=== PATIENT | female | born 1990 | race Two or more races ===

== ENCOUNTER 2018-05-15 11:05 | Observation (INO) | payer OTHER ==
[~2018-05-15] VITALS: Ht 165.1 cm; Wt 97.7 kg
--- NOTE | 2018-05-15 11:35 | NUR ---
PT PRESENTING TO ER FOR LLQ PAIN X1 WK WITH PAIN IN ABD DURING AND AFTER VOIDING SINCE YESTERDAY. CONNECTED TO MONITORING, VSS. NO V/D REPORTED. UA COLLECTED AND SENT TO LAB. CALL LIGHT WITHIN REACH. AWAITING US AND LAB AT THIS TIME.
[2018-05-15] MEDS ORDERED: MIRENA (11:36)
[2018-05-15 11:58] LABS: BASOPHILS # (AUTO) 0.03 x10^3/uL (0-0.1); BASOPHILS % (AUTO) 0 % (0-1); EOSINOPHILS # (AUTO) 0.16 x10^3/uL (0-0.4); EOSINOPHILS % (AUTO) 2 % (1-7); LYMPHOCYTES # (AUTO) 2.37 x10^3/uL (1-3.4); LYMPHOCYTES % (AUTO) 23 % (22-44); MD NO; MEAN CORPUSCULAR HEMOGLOBIN 27.7 pg (27.0-34.8); MEAN CORPUSCULAR HGB CONC 33.3 g/dL (32.4-35.8); MEAN CORPUSCULAR VOLUME 83.2 fL (80-100); MEAN PLATELET VOLUME 6.9 fL (7.4-10.4); MONOCYTES # (AUTO) 0.86 x10^3/uL (0.2-0.8); MONOCYTES % (AUTO) 8 % (2-9); NEUTROPHILS % (AUTO) 67 % (42-75); PLATELET COUNT 440 x10^3/uL (130-400); RED BLOOD COUNT 4.79 x10^6/uL (3.82-5.3); RED CELL DISTRIBUTION WIDTH 13.4 % (9.6-15.2)
[2018-05-15 12:06] LABS: ALBUMIN 3.5 g/dL (3.4-5.0); ANION GAP 3 mmol/L (5-15); CALCIUM 8.5 mg/dL (8.5-10.1); CHLORIDE 111 mmol/L (98-107)
--- NOTE | 2018-05-15 12:08 | NUR ---
PT TAKEN TO US
[2018-05-15 12:20] LABS: MICROSCOPIC INDICATED
[2018-05-15 12:24] LABS: CREATININE 0.63 mg/dL (0.55-1.02)
[2018-05-15 12:26] LABS: CULTURE INDICATED? NO
--- NOTE | 2018-05-15 13:01 | NUR ---
MD TO BEDSIDE TO UPDATE PT ON POC. HOUSE DESIGNER PAGED, AWAITING DISPO.
--- NOTE | 2018-05-15 13:08 | NUR ---
IV PLACED, PER MD REQUEST. VSS. AWAITING FURTHER ORDERS AT THIS TIME
[2018-05-15] MEDS ORDERED: MORPHINE SULFATE 4 MG/ML, 1ML ONE (13:23)
[2018-05-15] MEDS ORDERED: SODIUM CHLORIDE FLUSH 10ML SYR IVF ONE (13:30)
[2018-05-15] MEDS ORDERED: MORPHINE SULFATE 4 MG/ML, 1ML IVPush PRN ×2 (13:30→18:00)
--- NOTE | 2018-05-15 13:33 | NUR ---
PT MEDCIATED FOR PAIN PER MAR. AWAITING DR. PAVON AT THIS TIME. CALL LIGHT WITHIN REACH. VSS
--- NOTE | 2018-05-15 14:43 | NUR ---
REPORT GIVEN TO CHRISTOPHER SANTOS
[2018-05-15 15:55] VITALS: BP 122/72
--- NOTE | 2018-05-15 15:55 | NUR ---
DR PAVON AT BEDSIDE
--- NOTE | 2018-05-15 16:39 | NUR ---
PT AWARE OF POC. PT DENIES NEEDS OR PAIN ATT. PT ON CONT. SPO2 AND BP MONITOR, VSS.
[2018-05-15] MEDS ORDERED: FENTANYL PF 100 MCG/2ML ONE (17:42)
[2018-05-15] MEDS ORDERED: MIDAZOLAM 1 MG/ML, 2ML ONE (17:42)
[2018-05-15] MEDS ORDERED: BUPIVACAINE/PF 0.25% ONE (17:47)
[2018-05-15] MEDS ORDERED: MISOPROSTOL 200 MCG TABLET ONE (17:47)
[2018-05-15] MEDS ORDERED: EPINEPHRINE 1 MG/ML, 1ML ONE (17:48)
[2018-05-15] MEDS ORDERED: OXYTOCIN 10 UNITS/ML, 1ML ONE (17:48)
[2018-05-15] MEDS ORDERED: METHYLERGONOVINE 0.2 MG/ML IM ONE (17:48)
[2018-05-15] MEDS ORDERED: SILVER NITRATE STICK TP ONE (17:48)
[2018-05-15] MEDS ORDERED: FENTANYL PF 100 MCG/2ML IV PRN (18:00)
[2018-05-15] MEDS ORDERED: OXYcodone 5 MG/5 ML ORAL.SOL UDC PO PRN (18:00)
[2018-05-15] MEDS ORDERED: MEPERIDINE/PF 25MG/0.5ML IVPush PRN (18:00)
[2018-05-15] MEDS ORDERED: LORazepam 2 MG/ML, 1ML IVPush PRN (18:00)
[2018-05-15] MEDS ORDERED: METOCLOPRAMIDE 5 MG/ML, 2ML IV PRN (18:00)
[2018-05-15] MEDS ORDERED: HYDROmorphone 2 MG/ML, 1ML IVPush PRN (18:00)
[2018-05-15] MEDS ORDERED: ACETAMINOPHEN 325 MG TABLET PO PRN (18:00)
[2018-05-15] MEDS ORDERED: LIDOCAINE 2% 100MG/5ML SYRINGE ONE (18:05)
[2018-05-15] MEDS ORDERED: CEFAZOLIN 1,000 MG ONE (18:05)
[2018-05-15] MEDS ORDERED: ROCURONIUM 10MG/ML,5ML ONE (18:05)
[2018-05-15] MEDS ORDERED: NEOSTIGMINE 1 MG/ML, 10ML ONE (18:05)
[2018-05-15] MEDS ORDERED: GLYCOPYRROLATE 0.2MG/1ML, 5ML ONE (18:05)
[2018-05-15] MEDS ORDERED: DEXAMETHASONE 4 MG/ML, 1ML ONE (18:05)
[2018-05-15] MEDS ORDERED: PROPOFOL 10 MG/ML, 20ML ONE (18:05)
[2018-05-15] MEDS ORDERED: ONDANSETRON 2MG/ML, 2ML ONE (18:05)
[2018-05-15] MEDS ORDERED: BUPIVACAINE/PF-EPI 0.25% 1:200K INFIL ONE (18:25)
[2018-05-15] MEDS ORDERED: OXYcodone 5 MG/5 ML ORAL.SOL UDC ONE (19:46)
[2018-05-15] MEDS ORDERED: MEPERIDINE/PF 25MG/ML,1ML ONE (19:50)
[2018-05-15] MEDS ORDERED: ONDANSETRON 2MG/ML, 2ML IVPush PRN (20:00)
[2018-05-15] MEDS ORDERED: morphine SULFATE 10 MG/ML, 1ML IVPush PRN (20:00)
[2018-05-15] MEDS ORDERED: OXYcodone/APAP 5/325MG TABLET PO PRN (20:00)
[2018-05-15] MEDS ORDERED: OXYC-302 PO (22:03)
== END 2018-05-15 23:10 | disposition home or self-care (01) ==
LOC: ED 13:17 → EDIP 16:32 → 4NOR 20:45
PROVIDERS: ADMIT Obstetrics & Gynecology; ATTEND Obstetrics & Gynecology
DX: O00.90 Unspecified ectopic pregnancy without intrauterine pregnancy (principal); O36.80X0 Pregnancy with inconclusive fetal viability, not applicable or unspecified; Z30.432 Encounter for removal of intrauterine contraceptive device
CPT/HCPCS: 36415; 59151; 76830; 80048; 81001; 82040; 84702; 84703; 85025; 86901; 88305; 96374; 99284; C1760; G0378; J0171; J0690; J1100; J2175; J2250; J2405; J2704; J2710; J3010; J3490; J2210; J2590